=== PATIENT | male | born 1970 | race African-American/Black ===

== ENCOUNTER 2016-08-31 11:51 | Emergency (ER) | payer OTHER ==
--- NOTE | ~2016-08-31 | EKG ---
PATIENT: BRITTANY HUBBARD UNIT #: [id number] Ventricular Rate: 59 BPM Atrial Rate: 59 BPM P-R Interval: 136 ms QRS Duration: 92 ms Q-T Interval: 390 ms QTC Calculation(Bezet): 386 ms P [place]: 19 degrees Calculated R [place]: -23 degrees Calculated T [place]: 5 degrees Diagnosis Line: Sinus bradycardia Diagnosis Line: Otherwise normal ECG Diagnosis Line: When compared with ECG of 12-MAY-2013 16:17, Diagnosis Line: No significant change was found Diagnosis Line: Confirmed by JANET DEL VALLE MD ([id number]) on 09/01/2016 Diagnosis Line: 10:02:30 AM INTERPRETING MD: IVON MUJICA
--- NOTE | ~2016-08-31 | CR63 ---
[facility] A Service of [facility] & [facility] RADIOLOGY TEXT RESULTS PATIENT: BRITTANY HUBBARD LOCATION: [facility] : 72 UNIT #: [id number] AGE: [address]: LOLLY LAURA SEX: M ORDER DR: [id number] [facility] [address] [place], [place] [address] [id number] E MR#: [id number] Acc #: [id number] NAME: BRITTANY HUBBARD. : 1970 SEX: M STUDY DATE/TIME: 08/31/2016 13:00 UNIT: [facility] ROOM: STUDY DESCRIPTION: CR Chest 2 View Attending Physician: Lolly Laura Aprn Ordering Physician: Lolly Laura Aprn Primary Care Physician: No Primary Care Physician MEDICAL IMAGING REPORT This report is preliminary unless electronic signature is present EXAM PA and lateral chest. HISTORY Shortness of air, midback pain for 3 days. COMPARISON STUDIES 09/28/2013 FINDINGS PA and lateral views of the chest were obtained. The heart size and vascularity are normal. The lungs are clear and the bones are unremarkable. IMPRESSION No active disease. Dictated by... Jose Gunter M.D. THIS IS AN ELECTRONICALLY VERIFIED REPORT Jose Gunter M.D. at 08/31/2016 3:33 PM ALIREZA/fiona TD: 08/31/2016 14:36 JOB #: [id number] MEDICAL IMAGING REPORT Page 1 of 1 COPY
[~2016-08-31 11:51] MED LIST: ANUSOL-HC25 MG/SUPP RC; DOCU SOFT100 M1 PO; FLEXERIL10 M1 PO; IBUPROFEN800 MG PO; LORTAB 10-5001 EACH PO; ZIPSOR25 MG PO; [UNRECOGNIZED DRUG - OTHER]
== END 2016-08-31 13:43 | disposition home or self-care (01) ==
LOC: CED 11:51 → CFTX 11:51
DX: R07.89 Other chest pain (principal); F17.200 Nicotine dependence, unspecified, uncomplicated; Z96.641 Presence of right artificial hip joint; Z96.698 Presence of other orthopedic joint implants
CPT/HCPCS: 71020; 93005; 99284

== ENCOUNTER 2016-10-05 16:34 | Emergency (ER) | payer OTHER ==
--- NOTE | ~2016-10-05 | CR56 ---
[facility] A Service of [facility] & [facility] RADIOLOGY TEXT RESULTS PATIENT: BRITTANY HUBBARD LOCATION: [facility] : 72 UNIT #: [id number] AGE: [address]: Jessica Zhong APRN SEX: M ORDER DR: [id number] [facility] [address] [place], [place] [address] [id number] E MR#: [id number] Acc #: [id number] NAME: BRITTANY HUBBARD. : 1970 SEX: M STUDY DATE/TIME: 10/05/2016 17:32 UNIT: [facility] ROOM: STUDY DESCRIPTION: CR Calcaneus Min 2 Views Rt Attending Physician: Jessica Zhong A.P.R.N. Ordering Physician: Ed Doctor [id number] [facility] Primary Care Physician: No Primary Care Physician MEDICAL IMAGING REPORT This report is preliminary unless electronic signature is present EXAM Right calcaneus 10/05/2016 1732 hours HISTORY Bilateral heel pain for 2 months, particularly when for standing up. No reported injury. COMPARISON None FINDINGS 2 views of the calcaneus demonstrate no fracture, spurring or bone lesion. No radiopaque foreign body. IMPRESSION Negative right calcaneus. There is no fracture, spurring or degenerative change. No radiopaque foreign body. Dictated by... Yas Blackwood M.D. THIS IS AN ELECTRONICALLY VERIFIED REPORT Yas Blackwood M.D. at 10/06/2016 9:33 AM Alexandra TD: 10/05/2016 20:54 JOB #: [id number] MEDICAL IMAGING REPORT Page 1 of 1 COPY
--- NOTE | ~2016-10-05 | CR55 ---
[facility] A Service of [facility] RADIOLOGY TEXT RESULTS PATIENT: BRITTANY HUBBARD LOCATION: [facility] : 72 UNIT #: [id number] AGE: [address]: Jessica Zhong APRN SEX: M ORDER DR: [id number] [facility] [address] [place], [place] [address] [id number] E MR#: [id number] Acc #: [id number] NAME: BRITTANY HUBBARD : 1970 SEX: M STUDY DATE/TIME: 10/05/2016 UNIT: [place] ROOM: STUDY DESCRIPTION: CR Calcaneus Min 2 Views Lt Attending Physician: Jessica Zhong A.P.R.N. Ordering Physician: Ed Blayne Benjamin M.D. Primary Care Physician: No Primary Care Physician MEDICAL IMAGING REPORT This report is preliminary unless electronic signature is present EXAM Left calcaneus 10/05/2016 1732 hours. HISTORY 46-year-old man complaining of bilateral heel pain for 10 months. Pain when first standing up. COMPARISON Right calcaneus 10/05/2016 FINDINGS 2 views of the left calcaneus demonstrate radiopaque foreign bodies in the plantar soft tissues adjacent to the articulation between the calcaneus and the cuboid with the largest measuring 4 mm with an adjacent 2 mm density and 2 punctate densities more posteriorly, deep to the calcaneus. The calcaneus appears normal. IMPRESSION There are 4 small radiopaque densities in the plantar deep soft tissues, largest measuring 4 mm, suggesting foreign bodies rather than calcifications. No fracture seen. STAT * RESULT Dictated by... Yas Blackwood M.D. THIS IS AN ELECTRONICALLY VERIFIED REPORT Yas Blackwood M.D. at 10/05/2016 8:02 PM ELIEL/john [facility] A Service of [facility] RADIOLOGY TEXT RESULTS PATIENT: BRITTANY HUBBARD LOCATION: [facility] : 72 UNIT #: [id number] AGE: [address]: Jessica Zhong APRN SEX: M ORDER DR: TD: 10/05/2016 18:09 JOB #: [id number] MEDICAL IMAGING REPORT Page 1 of 1 COPY
== END 2016-10-05 18:40 | disposition home or self-care (01) ==
LOC: CED 16:34 → CFTX 16:34
DX: M79.672 Pain in left foot (principal); M79.671 Pain in right foot; F17.200 Nicotine dependence, unspecified, uncomplicated
CPT/HCPCS: 73650; 99283